=== PATIENT | female | born 1955 | race Caucasian/White ===

== ENCOUNTER → 2024-12-04 | Outpatient (CLI) | payer SELFPAY ==
--- NOTE | 2024-12-04 | XR_ITS ---
Examination: CT chest, without intravenous contrast. Sagittal and coronal 2-D reconstructions. Exam date and time: December 04, 2024 0803 hours Comparison September 13, 2024, CT chest 08/15/2024 INDICATIONS: Diagnosis malignant neoplasm appendix 4 years ago, restaging CTDI:vol (mGy) 6.57 DLP: (mGycm) 281 Technique: Multiple 3.0 mm axial sections of the chest to been obtained. Bone and lung density settings are obtained. Sagittal and coronal 2-D reconstructions have been obtained. Low dose protocols were performed. One or more of the following dose reduction techniques were used; automated exposure control, adjustment of the mA and/or KV according to patient size, use of iterative reconstruction technique. Findings: Numerous bilateral thyroid nodules, the largest left lobe of the thyroid 12 mm No thoracic aortic aneurysmal dilatation Pulmonary artery segments are not enlarged No paratracheal tracheobronchial or bronchopulmonary adenopathy COPD with multiple areas of airspace destruction 2 mm pulmonary nodule left upper lobe image 166 6 mm pulmonary nodule right upper lobe image 177 8mm pulmonary nodule right upper lobe image 194 8mm pulmonary nodule pleural-based right upper lobe image 194 4 mm pulmonary nodule lingular segment image 228 10 mm pulmonary nodule 6 mm pulmonary nodule lingular segment image 234 8mm pulmonary nodule pleural-based right lower lobe image 234 10 mm pulmonary nodule right middle lobe image 238 6 mm pulmonary nodule left lower lobe image 316 Mild pneumonia right base with mild right pleural fluid No visualized liver or splenic lesion No gallstones Is partially visualized no hydronephrosis Prominent osteopenia IMPRESSION: Numerous bilateral thyroid nodules, recommend dedicated thyroid sonography follow-up No mediastinal lymphadenopathy COPD Numerous bilateral pulmonary nodules, consider pulmonary nodular metastatic disease, with this study as baseline recommend 6 month follow-up CT chest without contrast
== END | disposition home or self-care (01) ==
PROVIDERS: Referring Provider Nurse Practitioner Family; Visit Provider Nurse Practitioner Family
DX: E04.2 Nontoxic multinodular goiter (principal); J44.9 Chronic obstructive pulmonary disease, unspecified; R91.8 Other nonspecific abnormal finding of lung field; C18.1 Malignant neoplasm of appendix
CPT/HCPCS: 71250